=== PATIENT | female | born 1975 | race Caucasian/White ===

== ENCOUNTER 2018-03-24 21:28 | Emergency (ER) | payer OTHER ==
[~2018-03-24] VITALS: Ht 157.5 cm; Wt 52.7 kg
[2018-03-24] MEDS ORDERED: NORCO 5/3251 TABLET PO (23:29)
[2018-03-24 23:55] VITALS: BP 127/62
== END 2018-03-25 00:07 | disposition home or self-care (01) ==
LOC: EME 21:28
PROC: 2W3QX1Z Immobilization of Right Lower Leg using Splint (ICD-10-PCS; principal; 2018-03-24)
DX: S82.61XA Displaced fracture of lateral malleolus of right fibula, initial encounter for closed fracture (principal); X50.1XXA Overexertion from prolonged static or awkward postures, initial encounter; Y93.51 Activity, roller skating (inline) and skateboarding
CPT/HCPCS: 73610; 99281; 99284